=== PATIENT | male | born 1940 | race Caucasian/White ===

== ENCOUNTER 2017-03-11 04:15 | Observation (INO) | payer OTHER ==
[~2017-03-11] VITALS: Ht 172.7 cm; Wt 70.0 kg
[2017-03-11 04:15] VITALS: BP 154/72; PULSE 58; RESP 24; TEMP 97.7; O2SAT 98
[~2017-03-11 04:15] MED LIST: AMOX875T20 PO; CIPR750T10 PO; CLIN1CAP6 PO; CLOB-50 TOP; EZET10 PO; FLUN25I; GLYB1.2538 PO; LANS30 PO; LISI-357 PO; METO25 PO; NITR.4 SL; SM A81CH PO; TERA1CAP3 PO
[2017-03-11 04:19] VITALS: BP 159/74; PULSE 57; RESP 20; TEMP 97.7; O2SAT 100
[2017-03-11 04:53] LABS: AUTOMATED NEUTROPHIL # 5.4 TH/MM3 (1.8-7.7); BASOPHIL % 0.5 % (0.0-2.0); EOSINOPHIL # 0.3 TH/MM3 (0-0.4); EOSINOPHIL % 3.4 % (0.0-4.0); HEMATOCRIT 32.1 % (39.0-51.0); HEMO FLAGS DIFF FINAL; LYMPH % 16.7 % (9.0-44.0); LYMPHOCYTE # 1.3 TH/MM3 (1.0-4.8); MEAN CELL VOLUME 81.9 FL (80.0-100.0); MEAN CORPUSCULAR HEMOGLOBIN 28.4 PG (27.0-34.0); MEAN CORPUSCULAR HGB CONC 34.7 % (32.0-36.0); MONO % 8.7 % (0.0-8.0); NEUT % 70.7 % (16.0-70.0); PLATELET COUNT 189 TH/MM3 (150-450); RED BLOOD COUNT 3.92 MIL/MM3 (4.50-5.90); RED CELL DISTRIBUTION WIDTH 14.3 % (11.6-17.2); WHITE BLOOD COUNT 7.6 TH/MM3 (4.0-11.0)
--- NOTE | 2017-03-11 04:58 | RADRPT ---
EXAM DATE/TIME: 03/11/2017 04:47 [facility] COMPARISON: No previous studies available for comparison. INDICATIONS : Cough. MEDICAL HISTORY : None. SURGICAL HISTORY : CABG. ENCOUNTER: Initial ACUITY: 1 day PAIN SCORE: 0/10 LOCATION: Bilateral chest FINDINGS: The patient is status post sternotomy. The heart size is normal. The lungs are clear. CONCLUSION: No acute disease. Carlos Dotson MD on March 11, 2017 at 4:56 Board Certified Radiologist. This report was verified electronically.
[2017-03-11 05:00] VITALS: BP 164/74; PULSE 56; RESP 24; O2SAT 98
[2017-03-11 05:05] LABS: APTT (PATIENT) 24.5 SEC (24.3-30.1); PROTHROMBIN TIME - PATIENT 10.5 SEC (9.8-11.6)
[2017-03-11 05:11] LABS: ALCOHOL LESS THAN 3 MG/DL (0-5); ALT (GPT) 30 U/L (12-78); ANION GAP 8 MEQ/L (5-15); AST (GOT) 23 U/L (15-37); BICARBONATE 22.9 MEQ/L (21.0-32.0); BLOOD UREA NITROGEN 13 MG/DL (7-18); CHLORIDE 98 MEQ/L (98-107); GLOMERULAR FILTRATION RATE 72 ML/MIN (>89); MAGNESIUM 1.7 MG/DL (1.5-2.5); POTASSIUM 4.1 MEQ/L (3.5-5.1); SODIUM (NA) 129 MEQ/L (136-145)
[2017-03-11 05:14] LABS: ALKALINE PHOSPHATASE 61 U/L (45-117); TOTAL BILIRUBIN ADULT 0.6 MG/DL (0.2-1.0)
[2017-03-11 05:17] LABS: CREATINE KINASE 89 U/L (39-308)
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
[2017-03-11 05:47] LABS: BLOOD, URINE NEG (NEG); GLUCOSE,URINE NEG (NEG); KETONE, URINE NEG (NEG); NITRITE,URINE NEG (NEG); URINE COLOR LIGHT-YELLOW (YELLW/STRAW)
[2017-03-11 05:48] LABS: COMMENT (UR) CULT NOT INDICATED; CULTURE IF INDICATED CULT NOT INDICATED
[2017-03-11 06:00] VITALS: BP 147/82; PULSE 58; RESP 24; O2SAT 99
[2017-03-11] MEDS ORDERED: IOHEXOL 350 MG/ML 10 ML VIAL (for RAD DIAG) IVCONTRAST ONE (07:05)
--- NOTE | 2017-03-11 07:09 | RADRPT ---
EXAM DATE/TIME: 03/11/2017 06:46 [facility] COMPARISON: No previous studies available for comparison. INDICATIONS : Expressive aphasia. RADIATION DOSE: 56.35 CTDIvol (mGy) MEDICAL HISTORY : Cardiovascular disease. SURGICAL HISTORY : None. ENCOUNTER: Initial ACUITY: 1 day PAIN SCALE: 0/10 LOCATION: cranial TECHNIQUE: Multiple contiguous axial images were obtained of the head. Using automated exposure control and adj ustment of the mA and/or kV according to patient size, radiation dose was kept as low as reasonably a chievable to obtain optimal diagnostic quality images. DICOM format image data is available electro nically for review and comparison. FINDINGS: There is diffuse atrophy. No hemorrhage or mass. No signs of acute infarction. There is patchy hypode nsity in the bilateral centrum semiovale, periventricular white matter as well as the kelly most likel y on the basis of chronic microvascular ischemic disease. No fractures. CONCLUSION: No acute disease. Jarett Richmond MD on March 11, 2017 at 7:06 Board Certified Radiologist. This report was verified electronically.
--- NOTE | 2017-03-11 07:28 | RADRPT ---
EXAM DATE/TIME: 03/11/2017 06:48 [facility] COMPARISON: CT BRAIN W/O CONTRAST, March 11, 2017, 6:46. INDICATIONS : Expressive aphasia. IV CONTRAST: 75 cc Omnipaque 350 (iohexol) IV ; Cumulative dose for multiple exams. RADIATION DOSE: 14.69 CTDIvol (mGy) ; Combined studies MEDICAL HISTORY : Cardiovascular disease. SURGICAL HISTORY : None. ENCOUNTER: Initial ACUITY: 1 day PAIN SCALE: 0/10 LOCATION: Bilateral cranial TECHNIQUE: Volumetric scanning was performed using a multi-row detector CT scanner. The data was post processed with a variety of visualization algorithms including full volume maximum intensity projection, multi -planar sliding thin slab reformation, curved planar reformation, and surface rendering techniques. Using automated exposure control and adjustment of the mA and/or kV according to patient size, radiat ion dose was kept as low as reasonably achievable to obtain optimal diagnostic quality images. DICO M format image data is available electronically for review and comparison. FINDINGS: There is excellent visualization of the major intracranial arteries out to the second-order branch ve ssels. There is no evidence for aneurysm, vessel truncation or stenosis, and no evidence for vascula r malformation. Scattered areas of calcific plaquing are identified within the right distal vertebral artery, bilater al internal carotid arteries. CONCLUSION: Atherosclerosis without evidence for a high grade stenosis, occlusion, or aneurysm. Jarett Richmond MD on March 11, 2017 at 7:25 Board Certified Radiologist. This report was verified electronically.
--- NOTE | 2017-03-11 07:51 | RADRPT ---
EXAM DATE/TIME: 03/11/2017 06:48 [facility] COMPARISON: CTA BRAIN W 3D RECON, March 11, 2017, 6:48. INDICATIONS : Expressive aphasia. IV CONTRAST: 75 cc Omnipaque 350 (iohexol) IV ; Cumulative dose for multiple exams. RADIATION DOSE: 14.69 CTDIvol (mGy) ; Combined studies MEDICAL HISTORY : Cardiovascular disease. SURGICAL HISTORY : None. ENCOUNTER: Initial ACUITY: 1 day PAIN SCALE: 0/10 LOCATION: Bilateral neck Elevated flow velocities and ICA/CCA ratios have been found to correlate with increased degrees of vessel stenosis, calculated as percentage of diameter relative to a normal segment of distal ICA/CCA. TECHNIQUE: Volumetric scanning was performed using a multirow detector CT scanner. The data was post processed with a variety of visualization algorithms including full-volume maximum intensity projection, multip lanar sliding thin-slab reformation, curved-planar reformation, and surface-rendering techniques. Us ing automated exposure control and adjustment of the mA and/or kV according to patient size, radiatio n dose was kept as low as reasonably achievable to obtain optimal diagnostic quality images. DICOM f ormat image data is available electronically for review and comparison. FINDINGS: AORTIC ARCH: There is a three-vessel origin of the great vessels from the aorta. No evidence of ostial narrowing. RIGHT CAROTID: The common carotid artery is intact. The carotid bulb has a normal configuration without ulceration o r narrowing. Mild calcified plaque in the proximal internal carotid artery with resultant less than 1 0% stenosis. Cervical segment of the internal carotid artery is widely patent. Moderate atherosclerot ic calcifications of the supraclinoid segment with likely resultant mild to moderate stenosis. The ex ternal carotid artery is intact. LEFT CAROTID: The common carotid artery is intact. The carotid bulb has a normal configuration without ulceration with minimal calcified plaque. Mild calcified plaque in the proximal internal carotid artery with re sultant less than 10% stenosis. Cervical segment of the internal carotid artery is widely patent. Mod erate atherosclerotic calcifications are of the supraclinoid segment with likely resultant mild to mo derate stenosis. The external carotid artery is intact. VERTEBRALS: The vertebral arteries are slightly asymmetric with a dominant right vertebral artery. Distal vertebr al artery calcified plaque without significant flow-limiting stenosis. Miscellaneous: Visualized lung bases are clear. Heart appears unremarkable by CT. There is no significant cervical s oft tissue mass or adenopathy. CONCLUSION: 1. Moderate atherosclerotic calcifications of the supraclinoid internal carotid arteries with resulta nt tandem mild to moderate stenosis. Otherwise, no significant flow-limiting stenosis in the proximal or cervical segments of the internal carotid arteries. 2. Dominant right vertebral artery. No significant flow-limiting vertebral artery stenosis. Gigi Hunter MD on March 11, 2017 at 7:39 Board Certified Radiologist. This report was verified electronically.
--- NOTE | 2017-03-11 08:19 | PD ---
Physical Exam Narrative Received sign out from previous team to follow up CT scan and admit for TIA. 76yo M with PMH of CAD s/p CABG here with c/o difficulty speaking when he woke up this morning as well as having some right arm weakness. Said he was getting dress and having difficulty. Pt went to sleep at 11pm and was speaking normal with no right arm weakness. Pt evaluated at beside and said his speech is normal now and no more weakness. Denies any chest pain, sob, n/v, abdominal pain, focal weakness or numbness now. Labs reviewed, no leukocytosis. H/H low at 11.1/32.1. Mild hyponatremia at 129. Troponin negative. Ammonia normal. Utox negative. Alcohol negative. UA negative. CTA neck showed moderate atherosclerotic calcifications. No significant flow limiting vertebral artery stenosis. CXR negative. CT brain negative. CTA head negative. Pt given aspirin and to be admitted for TIA work up. Data Data Last Documented VS Vital Signs Date Time Temp Pulse Resp B/P (MAP) Pulse Ox O2 Delivery O2 Flow Rate FiO2 03/11/17 06:00 58 24 147/82 (103) 99 Room Air 03/11/17 04:19 97.7 Orders Orders Electrocardiogram (03/11/17 04:28) Complete Blood Count With Diff (03/11/17 04:28) Comprehensive Metabolic Panel (03/11/17 04:28) Creatine Kinase (Cpk) (03/11/17 04:28) Ckmb (Isoenzyme) Profile (03/11/17 04:28) Troponin I (03/11/17 04:28) B-Type Natriuretic Peptide (03/11/17 04:28) Prothrombin Time / Inr (Pt) (03/11/17 04:28) Act Partial Throm Time (Ptt) (03/11/17 04:28) Urinalysis - C+S If Indicated (03/11/17 04:28) Magnesium (Mg) (03/11/17 04:28) Ammonia (03/11/17 04:28) Chest, Single Ap (03/11/17 04:28) Ct Brain W/O Iv Contrast(Rout) (03/11/17 04:28) Iv Access Insert/Monitor (03/11/17 04:28) Ecg Monitoring (03/11/17 04:28) Oximetry (03/11/17 04:28) Drug Screen, Random Urine (03/11/17 04:28) Alcohol (Ethanol) (03/11/17 04:28) Cta Brain W Iv Contrast W 3d (03/11/17 04:28) Cta Neck W Iv Contrast W 3d (03/11/17 04:50) Iohexol 350 Inj (Omnipaque 350 Inj) (03/11/17 07:05) Labs Laboratory Tests Test 03/11/17 04:40 03/11/17 05:35 White Blood Count 7.6 TH/MM3 Red Blood Count 3.92 MIL/MM3 Hemoglobin 11.1 GM/DL Hematocrit 32.1 % Mean Corpuscular Volume 81.9 FL Mean Corpuscular Hemoglobin 28.4 PG Mean Corpuscular Hemoglobin Concent 34.7 % Red Cell Distribution Width 14.3 % Platelet Count 189 TH/MM3 Mean Platelet Volume 7.1 FL Neutrophils (%) (Auto) 70.7 % Lymphocytes (%) (Auto) 16.7 % Monocytes (%) (Auto) 8.7 % Eosinophils (%) (Auto) 3.4 % Basophils (%) (Auto) 0.5 % Neutrophils # (Auto) 5.4 TH/MM3 Lymphocytes # (Auto) 1.3 TH/MM3 Monocytes # (Auto) 0.7 TH/MM3 Eosinophils # (Auto) 0.3 TH/MM3 Basophils # (Auto) 0.0 TH/MM3 CBC Comment DIFF FINAL Differential Comment Prothrombin Time 10.5 SEC Prothromb Time International Ratio 1.0 RATIO Activated Partial Thromboplast Time 24.5 SEC Blood Urea Nitrogen 13 MG/DL Creatinine 1.00 MG/DL Random Glucose 95 MG/DL Total Protein 6.9 GM/DL Albumin 3.6 GM/DL Calcium Level 8.3 MG/DL Magnesium Level 1.7 MG/DL Alkaline Phosphatase 61 U/L Aspartate Amino Transf (AST/SGOT) 23 U/L Alanine Aminotransferase (ALT/SGPT) 30 U/L Total Bilirubin 0.6 MG/DL Sodium Level 129 MEQ/L Potassium Level 4.1 MEQ/L Chloride Level 98 MEQ/L Carbon Dioxide Level 22.9 MEQ/L Anion Gap 8 MEQ/L Estimat Glomerular Filtration Rate 72 ML/MIN Ammonia 24 MCMOL/L Total Creatine Kinase 89 U/L Troponin I LESS THAN 0.02 NG/ML B-Type Natriuretic Peptide 56 PG/ML Ethyl Alcohol Level LESS THAN 3 MG/DL Urine Color LIGHT-YELLOW Urine Turbidity CLEAR Urine pH 6.0 Urine Specific [place] 1.006 Urine Protein NEG mg/dL Urine Glucose (UA) NEG mg/dL Urine Ketones NEG mg/dL Urine Occult Blood NEG Urine Nitrite NEG Urine Bilirubin NEG Urine Urobilinogen LESS THAN 2.0 MG/DL Urine Leukocyte Esterase NEG Microscopic Urinalysis Comment CULT NOT INDICATED Urine Opiates Screen NEG Urine Barbiturates Screen NEG Urine Amphetamines Screen NEG Urine Benzodiazepines Screen NEG Urine Cocaine Screen NEG Urine Cannabinoids Screen NEG MDM Supervised Visit with EVELYNE: No Diagnosis Primary Impression: TIA (transient ischemic attack) Qualified Codes: G45.9 - Transient cerebral ischemic attack, unspecified Admitting Information Admitting Physician Requests: Observation Scripts Unable to Obtain Active Prescriptions or Reported Meds Rhianna Marvin DO Mar 11, 2017 08:18
[2017-03-11] MEDS ORDERED: ASPIRIN 325 MG TAB PO ONE (08:30)
[2017-03-11] MEDS ORDERED: SODIUM CHLORIDE 0.9% FLUSH 10 ML FLUSH IV FLUSH SCH (09:00)
[2017-03-11] MEDS ORDERED: SODIUM CHLORIDE 0.9% FLUSH 10 ML FLUSH IV FLUSH PRN (09:00)
--- NOTE | 2017-03-11 09:58 | HHI.HP ---
[facility] Admission Diagnosis TIA Diagnoses: Travel History International Travel<30 Days: No Contact w/Intl Traveler <30 Da: No History of Present Illness hx from patient, ER MD communication, daughter at the bedside, nursing staff woke up and had right arm pain, and right face tingling, and called ambulance himself and could not speak, was slurring was trying get himself dressed for coming to hospital and was not able to button his shirts midnight slept left foot problem chronic was getting rx at [place] - was chronic but oozing still taking antibiotics for it 14 days for one and 6 months antibiotics no diarrhea, but has been constipated no fever denies other symptoms Review of Systems Except as stated in HPI: all other systems reviewed are Neg Past Family Social History Past Medical History htn dm cad CABG 2011 [place], s/p 3 stents in 1993 dementia PAD TIA BPH left foot chronic diabetic ulcer/ osteo psoriasis Past Surgical History cabg 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- bovine c6-c7 titanium plate appendectomy tonsilectomy cataract right eye Allergies: Coded Allergies: Sulfa (Sulfonamide Antibiotics) (Unverified Allergy, Severe, 03/11/17) cholestyramine (Unverified Allergy, Severe, 03/11/17) lisinopril (Unverified Allergy, Severe, 03/11/17) metformin (Unverified Allergy, Severe, 03/11/17) niacin (Unverified Allergy, Severe, 03/11/17) omeprazole (Unverified Allergy, Severe, 03/11/17) simvastatin (Unverified Allergy, Severe, 03/11/17) Family History none that he knows of Social History used to smoke, now only once in awhile - about once a week, a few cigarettes about 2 beers a week no drugs lives on his own, still driving - even drove to [place] Physical Exam Vital Signs Vital Signs Date Time Temp Pulse Resp B/P (MAP) Pulse Ox O2 Delivery O2 Flow Rate FiO2 03/11/17 06:00 58 24 147/82 (103) 99 Room Air 12/19/17 05:00 56 24 164/74 (104) 98 Room Air 03/11/17 04:23 24 100 Room Air 03/11/17 04:19 97.7 57 20 159/74 (102) 100 03/11/17 04:15 97.7 58 24 154/72 (99) 98 Room Air Physical Exam GENERAL: This is a well-nourished, well-developed patient, in no apparent distress. SKIN: psoriatic lesions at bilateral knees HEAD: Atraumatic. Normocephalic. No temporal or scalp tenderness. EYES: No scleral icterus. No injection or drainage. ENT: Nose without bleeding, purulent drainage or septal hematoma. Airway patent. NECK: Trachea midline. No JVD Supple, nontender, no meningeal signs. CARDIOVASCULAR: Regular rate and rhythm without murmurs, gallops, or rubs. RESPIRATORY: Clear to auscultation. Breath sounds equal bilaterally. No wheezes , rales, or rhonchi. midline cabg scar GASTROINTESTINAL: Abdomen soft, non-tender, nondistended. No guarding. MUSCULOSKELETAL: Extremities without clubbing, cyanosis, or edema. No calf tenderness..left foot plantar surface with diabetic wound ulcer, no drainage, no erythema, but does have surround periwound swelling NEUROLOGICAL: Awake and alert. Cranial nerves II through XII intact. Motor and sensory grossly within normal limits. Normal speech. Laboratory Laboratory Tests Test 03/11/17 04:40 03/11/17 05:35 White Blood Count 7.6 Red Blood Count 3.92 Hemoglobin 11.1 Hematocrit 32.1 Mean Corpuscular Volume 81.9 Mean Corpuscular Hemoglobin 28.4 Mean Corpuscular Hemoglobin Concent 34.7 Red Cell Distribution Width 14.3 Platelet Count 189 Mean Platelet Volume 7.1 Neutrophils (%) (Auto) 70.7 Lymphocytes (%) (Auto) 16.7 Monocytes (%) (Auto) 8.7 Eosinophils (%) (Auto) 3.4 Basophils (%) (Auto) 0.5 Neutrophils # (Auto) 5.4 Lymphocytes # (Auto) 1.3 Monocytes # (Auto) 0.7 Eosinophils # (Auto) 0.3 Basophils # (Auto) 0.0 CBC Comment DIFF FINAL Differential Comment Prothrombin Time 10.5 Prothromb Time International Ratio 1.0 Activated Partial Thromboplast Time 24.5 Blood Urea Nitrogen 13 Creatinine 1.00 Random Glucose 95 Total Protein 6.9 Albumin 3.6 Calcium Level 8.3 Magnesium Level 1.7 Alkaline Phosphatase 61 Aspartate Amino Transf (AST/SGOT) 23 Alanine Aminotransferase (ALT/SGPT) 30 Total Bilirubin 0.6 Sodium Level 129 Potassium Level 4.1 Chloride Level 98 Carbon Dioxide Level 22.9 Anion Gap 8 Estimat Glomerular Filtration Rate 72 Ammonia 24 Total Creatine Kinase 89 Troponin I LESS THAN 0.02 B-Type Natriuretic Peptide 56 Ethyl Alcohol Level LESS THAN 3 Urine Color LIGHT-YELLOW Urine Turbidity CLEAR Urine pH 6.0 Urine Specific [place] 1.006 Urine Protein NEG Urine Glucose (UA) NEG Urine Ketones NEG Urine Occult Blood NEG Urine Nitrite NEG Urine Bilirubin NEG Urine Urobilinogen LESS THAN 2.0 Urine Leukocyte Esterase NEG Microscopic Urinalysis Comment CULT NOT INDICATED Urine Opiates Screen NEG Urine Barbiturates Screen NEG Urine Amphetamines Screen NEG Urine Benzodiazepines Screen NEG Urine Cocaine Screen NEG Urine Cannabinoids Screen NEG Result Diagram: 03/11/1743903/11/17439 Imaging Last 48 hours Impressions Neck CTA 03/11/17449 Signed Impressions: Service Date/Time: Saturday, March 11, 2017 06:48 - CONCLUSION: 1. Moderate atherosclerotic calcifications of the supraclinoid internal carotid arteries with resultant tandem mild to moderate stenosis. Otherwise, no significant flow-limiting stenosis in the proximal or cervical segments of the internal carotid arteries. 2. Dominant right vertebral artery. No significant flow-limiting vertebral artery stenosis. Gigi Hunter MD Head CTA 03/11/17427 Signed Impressions: Service Date/Time: Saturday, March 11, 2017 06:48 - CONCLUSION: Atherosclerosis without evidence for a high grade stenosis, occlusion, or aneurysm. Jarett Richmond MD Head CT 03/11/17427 Signed Impressions: Service Date/Time: Saturday, March 11, 2017 06:46 - CONCLUSION: No acute disease. Jarett Richmond MD Chest X-Ray 03/11/17427 Signed Impressions: Service Date/Time: Saturday, March 11, 2017 04:47 - CONCLUSION: No acute disease. Carlos Dotson MD Capmirelai VTE Risk Assessment Caprini VTE Risk Assessment: Mod/High Risk (score >= 2) Caprini Risk Assessment Model Point Value = 1 Point Value = 2 Point Value = 3 Point Value = 5 Age 41-60 Minor surgery BMI > 25 kg/m2 Swollen legs Varicose veins or History of unexplained or recurrent spontaneous Oral contraceptives or hormone replacement Sepsis (< 1 month) Serious lung disease, including pneumonia (< 1 month) Abnormal pulmonary function Acute myocardial infarction Congestive heart failure (< 1 month) History of inflammatory bowel disease Medical patient at bed rest Age 61-74 Arthroscopic surgery Major open surgery (> 45 min) Laparoscopic surgery (> 45 min) Malignancy Confined to bed (> 72 hours) Immobilizing plaster cast Central venous access Age >= 75 History of VTE Family history of VTE Factor V Leiden Prothrombin [id number] Lupus anticoagulant Anticardiolipin antibodies Elevated serum homocysteine Heparin-induced thrombocytopenia Other congenital or acquired thrombophilia Stroke (< 1 month) Elective arthroplasty Hip, pelvis, or leg fracture Acute spinal cord injury (< 1 month) Prophylaxis Regimen Total Risk Factor Score Risk Level Prophylaxis Regimen 0-1 Low Early ambulation 2 Moderate Order ONE of the following: *Sequential Compression Device (SCD) *Heparin 5000 units SQ BID 3-4 Higher Order ONE of the following medications: *Heparin 5000 units SQ TID *Enoxaparin/Lovenox 40 mg SQ daily (WT < 150 kg, CrCl > 30 mL/min) *Enoxaparin/Lovenox 30 mg SQ daily (WT < 150 kg, CrCl > 10-29 mL/min) *Enoxaparin/Lovenox 30 mg SQ BID (WT < 150 kg, CrCl > 30 mL/min) AND/OR *Sequential Compression Device (SCD) 5 or more Highest Order ONE of the following medications: *Heparin 5000 units SQ TID (Preferred with Epidurals) *Enoxaparin/Lovenox 40 mg SQ daily (WT < 150 kg, CrCl > 30 mL/min) *Enoxaparin/Lovenox 30 mg SQ daily (WT < 150 kg, CrCl > 10-29 mL/min) *Enoxaparin/Lovenox 30 mg SQ BID (WT < 150 kg, CrCl > 30 mL/min) AND *Sequential Compression Device (SCD) Assessment and Plan Assessment and Plan Impression: TIA Urinary frequency chronic with history of BPH htn dm cad CABG 2011 [place], s/p 3 stents in 1993 dementia PAD TIA BPH left foot chronic diabetic ulcer/ osteo psoriasis Plan: Patient really would like to be discharged home soon as me and the neurologist entered his room. His daughter was at the bedside. Patient is explained at length in front of his daughter regarding stroke management and the need to follow-up. He is explained the time sensitive manner of CVA / TIA management and that he should call 911 if any new symptoms developed. He is explained that the reason for us to admit him to the hospital under observation is to monitor for such symptoms and timing so that in case he needs medication such as TPA/clot busters/interventional radiology procedures, he would be able to do it. Patient's daughter is also explained that patient should follow up with the primary care. He has an appointment at [place] for tomorrow for his left foot diabetic chronic wound which is possibly with underlying osteomyelitis as well. He is contemplating whether to go to [place] today. His daughter is also explained that patient would likely need stronger anticoagulation then an aspirin that he is taking at home. This is to be discussed with his future [place] team or PCP. As per history, this is his second time of having a TIA. Imaging studies done at our hospital includes CT of the neck/CTA of the brain/ brain CT. All are negative for any significant abnormalities. Patient will sign out AMA. Nursing staff informed. Discussed Condition With patient, daughter at bedside, nursing staff Kamryn Gray MD Mar 11, 2017 09:58
--- NOTE | 2017-03-11 11:51 | MB ---
cc: JANNY VERONICA M.D. DATE OF CONSULTATION 03/11/2017 DATE OF 1940 AGE [age] years old. REASON FOR CONSULTATION Possible TIA. HISTORY OF PRESENT ILLNESS This is a 76-year-old man who went to bed normal, around midnight, woke up in the morning with some right arm pain, tingling of the face, dysarthria, unable to speak when he called the ambulance. He had trouble dressing himself, not able to button. He seems to be back to baseline. Since he woke up with the symptoms, there was no stroke alert called nor any t-PA given. He did have a CT, CTA, etc. Currently he denies any numbness, tingling, trouble speaking. PAST MEDICAL HISTORY 1. 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 2. He has a history diabetes. 3. Heart disease. 4. Bypass surgery. 5. Neuropathy. 6. Psoriasis. ALLERGIES SULFA. CHOLESTYRAMINE. LISINOPRIL. METFORMIN. NIACIN. OMEPRAZOLE. SIMVASTATIN. HOME MEDICINES please refer to his MAR. SOCIAL HISTORY Apparently lives alone. There is no tobacco or alcohol or drugs listed. FAMILY HISTORY Noncontributory at this point. PHYSICAL EXAMINATION VITALS: Temperature 97.7, pulse 58, respiratory rate 24, blood pressure 147/82. NECK: His neck is supple. I do not appreciate any bruises. HEART: Regular. GENERAL: He is awake, alert, oriented and fluent. NEUROLOGICAL EXAMINATION: Pupils reactive. Visual daniels full. Face symmetrical. Tongue is midline. Motor-lang I do not appreciate any drift. He has a minor tremor of his outstretched hands and minimal on [id number] on the left compared to the right but there is no drift. Strength is symmetrical. There is no leg lag. DTRs are 1+. Sensory normal. Toes are neutral. The right and left one is neutral as well but there is a large bandage over it. Gait is not tested. LABORATORY DATA Labs are reviewed. His white count is 7.6, hemoglobin 11.1, platelets 189,000. Coag panel was unremarkable. Chem studies show he is hyponatremia. Sodium is 129, GFR 72, calcium 8.3. BNP 56. Toxicology was negative. UA was negative. IMAGING STUDIES CT head did not show any acute pathology. No stroke or bleed. CTA of the [place] shows atherosclerosis without any evidence of any high-grade stenosis or occlusion or aneurysm. His CTA of the carotids shows moderate atherosclerotic calcifications of the supraclinoid, internal carotid arteries with resultant mild to moderate stenosis. Otherwise no significant flow-limiting stenosis in the proximal or cervical segments of the internal carotids. He has a dominant right vertebral artery. No significant flow-limiting stenosis. His chest x-ray has no acute pathology. IMPRESSION Likely TIA in this patient with medical history of heart disease, diabetes. RECOMMENDATIONS 1. Recommend at this point in time, since he has been on aspirin in the past, to change him over to Plavix 75 mg daily. 2. He will have an echocardiogram. We will get an MRI. He needs a lipid panel. 3. He needs to be on subcu Lovenox for DVT prophylaxis as well as SCDs. 4. PT, OT evaluation. He has been already been assessed. He has not been assessed yet by speech but his speech seems normal. I do not think he needs to have speech therapy eval. 5. It seems that he is allergic to certain statins. If his lipids are elevated, other options need to be considered. 6. If stable and workup is negative, I would recommend discharging him, have [facility]. 7. He would probably benefit from a prolonged Holter monitor as well. Thank you. MD SIMON [place]/SUSAN /10:13 AM /11:30 AM
[2017-03-11] MEDS ORDERED: LACTOBACILLUS ACIDOPHILUS TAB PO SCH (13:00)
--- NOTE | 2017-03-11 16:37 | EKG ---
Date Performed: 03/11/2017 Time Performed: 04:19:28 PTAGE: 76 years EKG: SINUS BRADYCARDIA (artifact noted). ST DEVIATION AND MODERATE T-WAVE ABNORMALITY, CONSIDER LATERAL ISCHEMIA Since previous tracing, no significant change noted ABNORMAL ECG PREVIOUS TRACING : 10/03/92 13.52.47 DOCTOR: Adam Ji Interpretating Date/Time 03/11/2017 16:37:01
[2017-03-11] MEDS ORDERED: DOCUSATE SODIUM 50 MG/SENNA 8.6 MG TAB PO SCH (21:00)
[2017-03-11 21:50] LABS: HEMOGLOBIN A1a 1.2 %; HEMOGLOBIN A1b 1.9 %; HEMOGLOBIN LA1C 1.9 %
[2017-03-11 21:51] LABS: HEMOGLOBIN Ao 83.2 %
[2017-03-12] MEDS ORDERED: CLOPIDOGREL 75 MG TAB PO SCH (09:00)
== END 2017-03-11 11:29 | disposition left against medical advice (07) ==
LOC: NEPC 04:15 → NEDA 08:36
PROVIDERS: ADMIT Internal Medicine; ATTEND Internal Medicine
DX: G45.9 Transient cerebral ischemic attack, unspecified (principal); N40.1 Benign prostatic hyperplasia with lower urinary tract symptoms; R35.0 Frequency of micturition; R05 Cough; R00.1 Bradycardia, unspecified; R94.31 Abnormal electrocardiogram [ECG] [EKG]; E87.1 Hypo-osmolality and hyponatremia; K59.00 Constipation, unspecified; I25.10 Atherosclerotic heart disease of native coronary artery without angina pectoris; I10 Essential (primary) hypertension; E11.51 Type 2 diabetes mellitus with diabetic peripheral angiopathy without gangrene; I73.9 Peripheral vascular disease, unspecified; E11.621 Type 2 diabetes mellitus with foot ulcer; L97.529 Non-pressure chronic ulcer of other part of left foot with unspecified severity; E11.40 Type 2 diabetes mellitus with diabetic neuropathy, unspecified; I25.2 Old myocardial infarction; K21.9 Gastro-esophageal reflux disease without esophagitis; F03.90 Unspecified dementia, unspecified severity, without behavioral disturbance, psychotic disturbance, mood disturbance, and anxiety; L40.9 Psoriasis, unspecified; F17.210 Nicotine dependence, cigarettes, uncomplicated; Z95.1 Presence of aortocoronary bypass graft; Z95.5 Presence of coronary angioplasty implant and graft; Z95.3 Presence of xenogenic heart valve; Z86.73 Personal history of transient ischemic attack (TIA), and cerebral infarction without residual deficits; Z79.899 Other long term (current) drug therapy; Z79.84 Long term (current) use of oral hypoglycemic drugs; Z79.82 Long term (current) use of aspirin
CPT/HCPCS: 70450; 70496; 70498; 71010; 80053; 80307; 81001; 82140; 82550; 83036; 83735; 83880; 84484; 85025; 85610; 85730; 93005; 99285; G0378; Q9967

== ENCOUNTER 2017-03-20 16:49 | Inpatient (IN) | payer OTHER, MEDICARE ==
[~2017-03-20] VITALS: Ht 177.8 cm; Wt 86.1 kg
[2017-03-20 17:04] VITALS: BP 204/88; PULSE 58; RESP 18; TEMP 97.7; TEMP 98; O2SAT 100
[2017-03-20 17:12] VITALS: BP 177/78; PULSE 58
[2017-03-20] MEDS ORDERED: LANS15CA PO (17:30)
[2017-03-20] MEDS ORDERED: SODIUM CHLORIDE 0.9% FLUSH 10 ML FLUSH IVF PRN (17:30)
[2017-03-20] MEDS ORDERED: LIPI80TA PO (17:30)
[2017-03-20] MEDS ORDERED: EZET10 PO (17:30)
[2017-03-20] MEDS ORDERED: DOXY1CAP91 PO (17:32)
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
[2017-03-20 17:58] LABS: HEMATOCRIT 36.9 % (39.0-51.0); HEMOGLOBIN 12.4 GM/DL (13.0-17.0); MEAN CELL VOLUME 84.5 FL (80.0-100.0); MEAN CORPUSCULAR HEMOGLOBIN 28.5 PG (27.0-34.0); MEAN CORPUSCULAR HGB CONC 33.7 % (32.0-36.0); MEAN PLATELET VOLUME 8.2 FL (7.0-11.0); PLATELET COUNT 169 TH/MM3 (150-450); RED BLOOD COUNT 4.37 MIL/MM3 (4.50-5.90); RED CELL DISTRIBUTION WIDTH 14.7 % (11.6-17.2); WHITE BLOOD COUNT 7.8 TH/MM3 (4.0-11.0)
[2017-03-20 17:59] VITALS: BP 179/78; PULSE 57; RESP 19; O2SAT 98
[2017-03-20 18:15] LABS: ALBUMIN 3.5 GM/DL (3.4-5.0); AST (GOT) 27 U/L (15-37); BICARBONATE 26.3 MEQ/L (21.0-32.0); BLOOD UREA NITROGEN 19 MG/DL (7-18); CALCIUM 8.2 MG/DL (8.5-10.1); CHLORIDE 105 MEQ/L (98-107); CREATININE 1.17 MG/DL (0.60-1.30); GLOMERULAR FILTRATION RATE 60 ML/MIN (>89); GLUCOSE,RANDOM 136 MG/DL (74-106); SODIUM (NA) 137 MEQ/L (136-145)
[2017-03-20 18:16] LABS: ALT (GPT) 32 U/L (12-78)
[2017-03-20 18:20] LABS: ALKALINE PHOSPHATASE 67 U/L (45-117); TOTAL BILIRUBIN ADULT 0.3 MG/DL (0.2-1.0); TOTAL PROTEIN 7.2 GM/DL (6.4-8.2); TROPONIN I LESS THAN 0.02 NG/ML (0.02-0.05)
[2017-03-20 18:22] LABS: BILIRUBIN, URINE NEG (NEG); BLOOD, URINE NEG (NEG); GLUCOSE,URINE TRACE mg/dL (NEG); KETONE, URINE NEG (NEG); NITRITE,URINE NEG (NEG); URINE COLOR LIGHT-YELLOW (YELLW/STRAW); URINE LEUKOCYTE ESTERASE NEG (NEG)
--- NOTE | 2017-03-20 18:36 | RADRPT ---
EXAM DATE/TIME: 03/20/2017 18:14 [facility] COMPARISON: CT BRAIN W/O CONTRAST, March 11, 2017, 6:46. INDICATIONS : Right hand numbness and tinging. RADIATION DOSE: 56.35 CTDIvol (mGy) MEDICAL HISTORY : Hypertension. Diabetes mellitus type 2. Cardiovascular disease SURGICAL HISTORY : None. ENCOUNTER: Initial ACUITY: 1 day PAIN SCALE: 0/10 LOCATION: cranial TECHNIQUE: Multiple contiguous axial images were obtained of the head. Using automated exposure control and adj ustment of the mA and/or kV according to patient size, radiation dose was kept as low as reasonably a chievable to obtain optimal diagnostic quality images. DICOM format image data is available electro nically for review and comparison. FINDINGS: CEREBRUM: The ventricles are normal for age. No evidence of midline shift, mass lesion, hemorrhage or acute in farction. No extra-axial fluid collections are seen. POSTERIOR FOSSA: The cerebellum and brainstem are intact. The 4th ventricle is midline. The cerebellopontine angle i s unremarkable. EXTRACRANIAL: The visualized portion of the orbits is intact. SKULL: The calvaria is intact. No evidence of skull fracture. CONCLUSION: No acute intracranial findings Carlos Reina MD on March 20, 2017 at 18:32 Board Certified Radiologist. This report was verified electronically.
[2017-03-20] MEDS ORDERED: ASPIRIN 81 MG CHEW TAB CHEW ONE (18:45)
[2017-03-20 18:50] LABS: BANDS 2 % (0-6); BASOPHILS 2 % (0-2); LYMPHOCYTES 13 % (9-44); MONOCYTES 8 % (0-8); NEUTROPHIL # MANUAL DIFF 5.7 TH/MM3 (1.8-7.7); POLYS (SEG NEUTROPHILS) 71 % (16-70)
--- NOTE | 2017-03-20 18:55 | PD ---
Physical Exam Narrative GENERAL: Well-nourished, well-developed patient. SKIN: Warm and dry. HEAD: Normocephalic and atraumatic. EYES: No injection or drainage. ENT: No nasal drainage noted. NECK: Supple, trachea midline. CARDIOVASCULAR: Regular rate and rhythm RESPIRATORY: no increased effort. No accessory muscle use. NEUROLOGICAL: Awake and alert. Talking on phone with clear speech, moves all extremities Data Data Last Documented VS Vital Signs Date Time Temp Pulse Resp B/P (MAP) Pulse Ox O2 Delivery O2 Flow Rate FiO2 03/20/17 17:59 57 19 179/78 (111) 98 Room Air 03/20/17 17:04 97.7 Orders Orders Electrocardiogram (03/20/17 17:23) Prothrombin Time / Inr (Pt) (03/20/17 17:23) Act Partial Throm Time (Ptt) (03/20/17 17:23) Complete Blood Count With Diff (03/20/17 17:23) Comprehensive Metabolic Panel (03/20/17 17:23) Creatine Kinase (Cpk) (03/20/17 17:23) Troponin I (03/20/17 17:23) Urinalysis - C+S If Indicated (03/20/17 17:23) Ct Brain W/O Iv Contrast(Rout) (03/20/17 17:23) Ecg Monitoring (03/20/17 17:23) Iv Access Insert/Monitor (03/20/17 17:23) Oximetry (03/20/17 17:23) Sodium Chloride 0.9% Flush (Ns Flush) (03/20/17 17:30) Aspirin Chew (Aspirin Chew) (03/20/17 18:45) Labs Laboratory Tests Test 03/20/17 17:25 03/20/17 17:30 Urine Color LIGHT-YELLOW Urine Turbidity CLEAR Urine pH 6.0 Urine Specific [place] 1.009 Urine Protein NEG mg/dL Urine Glucose (UA) TRACE mg/dL Urine Ketones NEG mg/dL Urine Occult Blood NEG Urine Nitrite NEG Urine Bilirubin NEG Urine Urobilinogen LESS THAN 2.0 MG/DL Urine Leukocyte Esterase NEG Urine RBC LESS THAN 1 /hpf Urine WBC LESS THAN 1 /hpf Microscopic Urinalysis Comment CATH-CULT NOT IND White Blood Count 7.8 TH/MM3 Red Blood Count 4.37 MIL/MM3 Hemoglobin 12.4 GM/DL Hematocrit 36.9 % Mean Corpuscular Volume 84.5 FL Mean Corpuscular Hemoglobin 28.5 PG Mean Corpuscular Hemoglobin Concent 33.7 % Red Cell Distribution Width 14.7 % Platelet Count 169 TH/MM3 Mean Platelet Volume 8.2 FL CBC Comment AUTO DIFF Differential Total Cells Counted 100 Neutrophils % (Manual) 71 % Band Neutrophils % 2 % Lymphocytes % 13 % Monocytes % 8 % Eosinophils % 4 % Basophils % 2 % Neutrophils # (Manual) 5.7 TH/MM3 Differential Comment FINAL DIFF MANUAL Platelet Estimate NORMAL Platelet Morphology Comment NORMAL Prothrombin Time 10.0 SEC Prothromb Time International Ratio 1.0 RATIO Activated Partial Thromboplast Time 24.0 SEC Blood Urea Nitrogen 19 MG/DL Creatinine 1.17 MG/DL Random Glucose 136 MG/DL Total Protein 7.2 GM/DL Albumin 3.5 GM/DL Calcium Level 8.2 MG/DL Alkaline Phosphatase 67 U/L Aspartate Amino Transf (AST/SGOT) 27 U/L Alanine Aminotransferase (ALT/SGPT) 32 U/L Total Bilirubin 0.3 MG/DL Sodium Level 137 MEQ/L Potassium Level 4.2 MEQ/L Chloride Level 105 MEQ/L Carbon Dioxide Level 26.3 MEQ/L Anion Gap 6 MEQ/L Estimat Glomerular Filtration Rate 60 ML/MIN Total Creatine Kinase 60 U/L Troponin I LESS THAN 0.02 NG/ML MDM Supervised Visit with EVELYNE: Yes Interpretation(s) CBC & BMP Diagram 03/20/17 17:30 Total Protein 7.2, Albumin 3.5, Calcium Level 8.2 L, Alkaline Phosphatase 67, Aspartate Amino Transf (AST/SGOT) 27, Alanine Aminotransferase (ALT/SGPT) 32, Total Bilirubin 0.3 Last [address] 03/20/17 1723 Signed Impressions: Service Date/Time: February 18:14 - CONCLUSION: No acute intracranial findings Carlos Reina MD Narrative Course I, Dr. hadley, have reviewed the advance practice practitioner's documentation and am in agreement, met with the patient face to face, made the diagnosis, and the medical decision making was done by me. *My assessment and Findings: 76 y/o male presents with numbness with recent left against advice for TIA workup. Patient agrees to admit for completion of testing Diagnosis Primary Impression: Numbness Mary Hadley MD Mar 20, 2017 18:55
--- NOTE | 2017-03-20 19:53 | HHI.HP ---
[facility] Admission Diagnosis TIA Diagnoses: (1) TIA (transient ischemic attack) Diagnosis: Principal (2) HTN (hypertension) Diagnosis: Principal (3) Bradycardia Diagnosis: Principal (4) Dehydration Diagnosis: Principal (5) DM (diabetes mellitus) Diagnosis: Principal Travel History International Travel<30 Days: No Contact w/Intl Traveler <30 Da: No Traveled to Known Affected Are: No History of Present Illness This is a 76-year-old male with PMH of HTN, CAD, DM, Hyperlipidemia and Peripheral Neuropathy who presented to the ER with complaints of RUE numbness and tingling in addition to dysarthria. States symptoms began acutely this afternoon, lasted approx 15-20 min, then resolved spontaneously. Currently feeling back to baseline. Similar symptoms approx 1 wk ago for which he was admitted on 03/11/17. CT Head and CTA Head w/ no acute findings, CTA Neck w/ moderate atherosclerotic calcifications of internal carotid arteries w/ mild to moderate stenosis. S/p eval by Dr. Mohamud w/ recommendation for Plavix, Echo and further imaging, however pt LEFT AMA. Now w/ recurrent symptoms. On arrival, BP 204/88, HR 58, O2 sat are percent on RA, Afebrile. CBC essentially unremarkable. GFR 60, producing a 72 on 03/11/17. Troponin negative. UA negative. CT Head with no acute findings. Review of Systems Except as stated in HPI: all other systems reviewed are Neg ROS: 14 point review of systems otherwise negative. Past Family Social History Past Medical History PMH: HTN, CAD, DM, Hyperlipidemia and Peripheral Neuropathy Past Surgical History PAST SURGICAL HISTORY: CABG, Aortic Valve Replacement, Cardiac Stent Allergies: Coded Allergies: Sulfa (Sulfonamide Antibiotics) (Unverified Allergy, Severe, 03/11/17) cholestyramine (Unverified Allergy, Severe, 03/11/17) lisinopril (Unverified Allergy, Severe, 03/11/17) metformin (Unverified Allergy, Severe, 03/11/17) niacin (Unverified Allergy, Severe, 03/11/17) omeprazole (Unverified Allergy, Severe, 03/11/17) simvastatin (Unverified Allergy, Severe, 03/11/17) Family History PAST FAMILY HISTORY: Reviewed, positive for DM and CAD Social History PAST SOCIAL HISTORY: Negative for alcohol, tobacco or drugs. Physical Exam Vital Signs Vital Signs Date Time Temp Pulse Resp B/P (MAP) Pulse Ox O2 Delivery O2 Flow Rate FiO2 03/20/17 17:59 57 19 179/78 (111) 98 Room Air 03/20/17 17:12 58 177/78 (111) 03/20/17 17:04 97.7 58 18 204/88 (126) 100 03/20/17 17:04 204/88 (126) 03/20/17 17:04 99 Room Air Physical Exam PE: GENERAL: Elderly white male in no acute distress. HEENT: PERRLA, EOMI. No scleral icterus or conjunctival pallor. No lid lag or facial droop. CARDIOVASCULAR: Regular rate and rhythm. No obvious murmurs to auscultation. No chest tenderness to palpation. RESPIRATORY: No obvious rhonchi or wheezing. Clear to auscultation. Breath sounds equal bilaterally. GASTROINTESTINAL: Abdomen soft, non-tender, nondistended. BS normal. MUSCULOSKELETAL: Extremities without clubbing, cyanosis, or edema. No obvious deformities. NEUROLOGICAL: Awake, alert and oriented x4. No focal neurologic deficits. Moving both upper and lower extremities spontaneously. Laboratory Laboratory Tests Test 03/20/17 17:25 03/20/17 17:30 Urine Color LIGHT-YELLOW Urine Turbidity CLEAR Urine pH 6.0 Urine Specific [place] 1.009 Urine Protein NEG Urine Glucose (UA) TRACE Urine Ketones NEG Urine Occult Blood NEG Urine Nitrite NEG Urine Bilirubin NEG Urine Urobilinogen LESS THAN 2.0 Urine Leukocyte Esterase NEG Urine RBC LESS THAN 1 Urine WBC LESS THAN 1 Microscopic Urinalysis Comment CATH-CULT NOT IND White Blood Count 7.8 Red Blood Count 4.37 Hemoglobin 12.4 Hematocrit 36.9 Mean Corpuscular Volume 84.5 Mean Corpuscular Hemoglobin 28.5 Mean Corpuscular Hemoglobin Concent 33.7 Red Cell Distribution Width 14.7 Platelet Count 169 Mean Platelet Volume 8.2 CBC Comment AUTO DIFF Differential Total Cells Counted 100 Neutrophils % (Manual) 71 Band Neutrophils % 2 Lymphocytes % 13 Monocytes % 8 Eosinophils % 4 Basophils % 2 Neutrophils # (Manual) 5.7 Differential Comment FINAL DIFF MANUAL Platelet Estimate NORMAL Platelet Morphology Comment NORMAL Prothrombin Time 10.0 Prothromb Time International Ratio 1.0 Activated Partial Thromboplast Time 24.0 Blood Urea Nitrogen 19 Creatinine 1.17 Random Glucose 136 Total Protein 7.2 Albumin 3.5 Calcium Level 8.2 Alkaline Phosphatase 67 Aspartate Amino Transf (AST/SGOT) 27 Alanine Aminotransferase (ALT/SGPT) 32 Total Bilirubin 0.3 Sodium Level 137 Potassium Level 4.2 Chloride Level 105 Carbon Dioxide Level 26.3 Anion Gap 6 Estimat Glomerular Filtration Rate 60 Total Creatine Kinase 60 Troponin I LESS THAN 0.02 Result Diagram: 03/20/17172903/20/171729 Caprini VTE Risk Assessment Caprini VTE Risk Assessment: No/Low Risk (score <= 1) Caprini Risk Assessment Model Point Value = 1 Point Value = 2 Point Value = 3 Point Value = 5 Age 41-60 Minor surgery BMI > 25 kg/m2 Swollen legs Varicose veins or History of unexplained or recurrent spontaneous Oral contraceptives or hormone replacement Sepsis (< 1 month) Serious lung disease, including pneumonia (< 1 month) Abnormal pulmonary function Acute myocardial infarction Congestive heart failure (< 1 month) History of inflammatory bowel disease Medical patient at bed rest Age 61-74 Arthroscopic surgery Major open surgery (> 45 min) Laparoscopic surgery (> 45 min) Malignancy Confined to bed (> 72 hours) Immobilizing plaster cast Central venous access Age >= 75 History of VTE Family history of VTE Factor V Leiden Prothrombin [id number] Lupus anticoagulant Anticardiolipin antibodies Elevated serum homocysteine Heparin-induced thrombocytopenia Other congenital or acquired thrombophilia Stroke (< 1 month) Elective arthroplasty Hip, pelvis, or leg fracture Acute spinal cord injury (< 1 month) Prophylaxis Regimen Total Risk Factor Score Risk Level Prophylaxis Regimen 0-1 Low Early ambulation 2 Moderate Order ONE of the following: *Sequential Compression Device (SCD) *Heparin 5000 units SQ BID 3-4 Higher Order ONE of the following medications: *Heparin 5000 units SQ TID *Enoxaparin/Lovenox 40 mg SQ daily (WT < 150 kg, CrCl > 30 mL/min) *Enoxaparin/Lovenox 30 mg SQ daily (WT < 150 kg, CrCl > 10-29 mL/min) *Enoxaparin/Lovenox 30 mg SQ BID (WT < 150 kg, CrCl > 30 mL/min) AND/OR *Sequential Compression Device (SCD) 5 or more Highest Order ONE of the following medications: *Heparin 5000 units SQ TID (Preferred with Epidurals) *Enoxaparin/Lovenox 40 mg SQ daily (WT < 150 kg, CrCl > 30 mL/min) *Enoxaparin/Lovenox 30 mg SQ daily (WT < 150 kg, CrCl > 10-29 mL/min) *Enoxaparin/Lovenox 30 mg SQ BID (WT < 150 kg, CrCl > 30 mL/min) AND *Sequential Compression Device (SCD) Assessment and Plan Problem List: (1) TIA (transient ischemic attack) ICD Code: G45.9 - Transient cerebral ischemic attack, unspecified Status: Acute (2) Dehydration ICD Code: E86.0 - Dehydration (3) Bradycardia ICD Code: R00.1 - Bradycardia, unspecified (4) HTN (hypertension) ICD Code: I10 - Essential (primary) hypertension (5) DM (diabetes mellitus) ICD Code: E11.9 - Type 2 diabetes mellitus without complications Assessment and Plan A/P: 1. TIA: Recurrent. Recent admit 03/11/17 for same, CT Head/CTA Head w/ no acute findings, CTA Neck w/ moderate calcifications of internal carotid arteries w/ mild to moderate stenosis, images reviewed by me. CT Head today w/ no acute findings, images reviewed. Continue w/ work-up for TIA, check Echo to eval for thromboembolic event, check MRI/MRA. Start Plavix per Neuro recommendation from last visit, hold Statin in light of reported ALLERGY. Check Lipid Profile, TSH, Hgb A1c. Neuro checks. NPO until passes swallow. Consult Neurology for further recommendations. PT/OT for eval/tx. 2. HTN: Uncontrolled. BP 204/88, HR 58. Allow for permissive HTN at the moment in light of TIA. Monitor BP. Antihypertensives for BP >220 systolic. 3. Bradycardia: HR 50's, asymptomatic at this time. Telemetry. Check Echo as above. 4. DM: Sliding scale w/ Accu-Cheks. Check Hgb A1c. 5. DVT Prophylaxis: Lovenox 6. Social work for d/c planning as needed. 7. Previous records/imaging/labs reviewed extensively from last visit, case discussed w/ ER physician at length. Physician Certification 2 Midnight Certification Type: Admission for Inpatient Services Order for Inpatient Services The services are ordered in accordance with Medicare regulations or non- Medicare payer requirements, as applicable. In the case of services not specified as inpatient-only, they are appropriately provided as inpatient services in accordance with the 2-midnight benchmark. Estimated LOS (days): 2 days is the estimated time the patient will need to remain in the hospital, assuming treatment plan goals are met and no additional complications. Post-Hospital Plan: Not yet determined Problem Qualifiers (1) TIA (transient ischemic attack): Qualified Codes: G45.9 - Transient cerebral ischemic attack, unspecified Alayna Lin MD Mar 20, 2017 19:53
[2017-03-20] MEDS ORDERED: GLUCAGON 1 MG/ML VIAL OTHER PRN (20:00)
[2017-03-20] MEDS ORDERED: LACTULOSE SYRUP 20 GM/30 ML CUP PO PRN (20:00)
[2017-03-20] MEDS ORDERED: ACETAMINOPHEN/HYDROcodone 325 MG/5 MG TAB PO PRN (20:00)
[2017-03-20] MEDS ORDERED: MAGNESIUM HYDROXIDE SUSP 30 ML CUP PO PRN (20:00)
[2017-03-20] MEDS ORDERED: ONDANSETRON HCL 4 MG/2 ML VIAL IVP PRN (20:00)
[2017-03-20] MEDS ORDERED: SENNOSIDES 8.6 MG TAB PO PRN (20:00)
[2017-03-20] MEDS ORDERED: BISACODYL 10 MG SUPP RECTAL PRN (20:00)
[2017-03-20] MEDS ORDERED: SODIUM CHLORIDE 0.9% FLUSH 10 ML FLUSH IV FLUSH PRN (20:00)
[2017-03-20] MEDS ORDERED: DEXTROSE 50% IN WATER 50 ML VIAL(D50) IV PUSH PRN (20:00)
[2017-03-20] MEDS ORDERED: MORPHINE SULFATE 2 MG/ML INJ IV PUSH PRN (20:00)
[2017-03-20] MEDS ORDERED: ACETAMINOPHEN 325 MG TAB PO PRN (20:00)
[2017-03-20] MEDS ORDERED: ENOXAPARIN SODIUM 40 MG/0.4 ML SYRINGE SQ SCH (21:00)
[2017-03-20 21:22] VITALS: BP 187/77; PULSE 55; RESP 17; TEMP 97.5; O2SAT 97
[2017-03-20] MEDS: INSULIN ASPART SUPPLEMENTAL SCALE SQ SCH (22:08)
[2017-03-20] MEDS: SODIUM CHLOR 0.9% 1000 ML INJ 1,000 ML IV SCH (22:30)
[2017-03-20] MEDS: DOCUSATE SODIUM 50 MG/SENNA 8.6 MG TAB PO SCH (22:31)
[2017-03-20] MEDS: SODIUM CHLORIDE 0.9% FLUSH 10 ML FLUSH IV FLUSH SCH (22:31)
--- NOTE | 2017-03-20 22:51 | RADRPT ---
EXAM DATE/TIME: 03/20/2017 20:35 [facility] COMPARISON: No previous studies available for comparison. INDICATIONS : Stroke. MEDICAL HISTORY : Hypertension. Cardiovascular disease Diabetes. SURGICAL HISTORY : Fusion, cervical. CABG Aortic valve replacement. ENCOUNTER: Subsequent ACUITY: 1 day PAIN SCORE: 0/10 LOCATION: cranial Please note a normal MRA of the brain does not entirely exclude the possibility of a small aneurysm, nor the possibility of distal intracranial vessel disease. TECHNIQUE: 3D time of flight MRA was performed. Source images, multiplanar STS MIP, and 3D volume MIP reconstru ctions were reviewed. FINDINGS: There is excellent visualization of the major intracranial arteries out to the second-order branch ve ssels. There is no evidence for aneurysm, vessel truncation or stenosis, and no evidence for vascula r malformation. There is mild relative hypoplasia of the right anterior cerebral artery A1 segment. CONCLUSION: No acute [place] vascular findings. Carlos Reina MD on March 20, 2017 at 22:49 Board Certified Radiologist. This report was verified electronically.
--- NOTE | 2017-03-20 23:00 | RADRPT ---
EXAM DATE/TIME: 03/20/2017 20:35 [facility] COMPARISON: No previous studies available for comparison. INDICATIONS : CVA. MEDICAL HISTORY : Hypertension. Cardiovascular disease Diabetes. SURGICAL HISTORY : Fusion, cervical. CABG Aortic valve replacement. ENCOUNTER: Subsequent ACUITY: 1 day PAIN SCORE: 0/10 LOCATION: cranial TECHNIQUE: Multiplanar, multisequence MRI of the brain was performed without contrast. FINDINGS: CEREBRUM: The ventricles are normal for age. No evidence of midline shift, mass lesion, hemorrhage or acute in farction. No extraaxial fluid collections are seen. The pituitary gland and suprasellar cistern are normal in configuration. WHITE MATTER: Patchy mild or ventricular white matter signal change which appears likely chronic and benign. POSTERIOR FOSSA: The cerebellum and brainstem are intact. The 4th ventricle is midline. The cerebellopontine angle is unremarkable. The cerebellar tonsils are normal in position. DIFFUSION IMAGING: No focal areas of restricted diffusion are seen. No evidence of acute infarction. EXTRACRANIAL: The visualized portions of the orbits and paranasal sinuses are unremarkable. CONCLUSION: No acute intracranial findings Carlos Reina MD on March 20, 2017 at 22:57 Board Certified Radiologist. This report was verified electronically.
[2017-03-21] VITALS (10 sets, daily range): BP systolic 149–170; BP diastolic 71–82; PULSE 56–69; RESP 17–18; TEMP 97.8–98.3; O2SAT 94–99
[2017-03-21] MEDS: PANTOPRAZOLE SOD 40 MG DELAYED RELEASE TAB PO SCH ×2 (06:21→16:26)
[2017-03-21 07:00] LABS: AUTOMATED NEUTROPHIL # 3.7 TH/MM3 (1.8-7.7); BASOPHIL % 0.7 % (0.0-2.0); EOSINOPHIL # 0.2 TH/MM3 (0-0.4); EOSINOPHIL % 3.7 % (0.0-4.0); HEMATOCRIT 36.5 % (39.0-51.0); HEMOGLOBIN 12.2 GM/DL (13.0-17.0); LYMPH % 22.4 % (9.0-44.0); LYMPHOCYTE # 1.3 TH/MM3 (1.0-4.8); MEAN CELL VOLUME 83.7 FL (80.0-100.0); MEAN CORPUSCULAR HEMOGLOBIN 28.1 PG (27.0-34.0); MEAN CORPUSCULAR HGB CONC 33.5 % (32.0-36.0); MEAN PLATELET VOLUME 8.2 FL (7.0-11.0); MONO % 9.5 % (0.0-8.0); MONOCYTE # 0.6 TH/MM3 (0-0.9); NEUT % 63.7 % (16.0-70.0); PLATELET COUNT 155 TH/MM3 (150-450); RED BLOOD COUNT 4.37 MIL/MM3 (4.50-5.90); RED CELL DISTRIBUTION WIDTH 14.8 % (11.6-17.2); WHITE BLOOD COUNT 5.8 TH/MM3 (4.0-11.0)
[2017-03-21 07:22] LABS: ALBUMIN 3.6 GM/DL (3.4-5.0); ALT (GPT) 28 U/L (12-78); AST (GOT) 20 U/L (15-37); BICARBONATE 24.4 MEQ/L (21.0-32.0); BLOOD UREA NITROGEN 18 MG/DL (7-18); CALCIUM 8.9 MG/DL (8.5-10.1); CHLORIDE 108 MEQ/L (98-107); CHOLESTEROL 152 MG/DL (120-200); CREATININE 0.99 MG/DL (0.60-1.30); GLOMERULAR FILTRATION RATE 73 ML/MIN (>89); GLUCOSE,RANDOM 92 MG/DL (74-106); SODIUM (NA) 140 MEQ/L (136-145); TRIGLYCERIDES 147 MG/DL (42-150)
[2017-03-21 07:24] LABS: ALKALINE PHOSPHATASE 60 U/L (45-117); HDL CHOLESTEROL 30.4 MG/DL (40.0-60.0); LDL CHOLESTEROL 92 MG/DL (0-99); TOTAL BILIRUBIN ADULT 0.4 MG/DL (0.2-1.0); TOTAL PROTEIN 7.2 GM/DL (6.4-8.2)
[2017-03-21] MEDS: INSULIN ASPART SUPPLEMENTAL SCALE SQ SCH ×3 (08:00→16:29)
[2017-03-21] MEDS: DOCUSATE SODIUM 50 MG/SENNA 8.6 MG TAB PO SCH (08:19)
[2017-03-21] MEDS: SODIUM CHLORIDE 0.9% FLUSH 10 ML FLUSH IV FLUSH SCH (08:22)
[2017-03-21] MEDS: SODIUM CHLOR 0.9% 1000 ML INJ 1,000 ML IV SCH (08:41)
[2017-03-21] MEDS ORDERED: CLOPIDOGREL 75 MG TAB PO SCH (09:00)
[2017-03-21] MEDS ORDERED: EZETIMIBE 10 MG TAB PO SCH (09:00)
--- NOTE | 2017-03-21 10:57 | HHI.PR ---
Subjective Remarks Nursing denies any deterioration since last night. Patient himself feels okay. Says that his strength is back denies having any numbness or tingling. Objective Vital Signs Date Time Temp Pulse Resp B/P (MAP) Pulse Ox O2 Delivery O2 Flow Rate FiO2 03/21/17 09:44 65 03/21/17 08:00 98.3 69 18 154/77 (102) 99 03/21/17 05:52 98.0 62 18 149/71 (97) 99 03/21/17 05:10 59 03/21/17 00:50 56 03/21/17 00:49 60 03/21/17 00:30 98.0 69 17 170/79 (109) 94 03/20/17 21:22 97.5 55 17 187/77 (113) 97 03/20/17 20:32 03/20/17 17:59 57 19 179/78 (111) 98 Room Air 03/20/17 17:12 58 177/78 (111) 03/20/17 17:04 97.7 58 18 204/88 (126) 100 03/20/17 17:04 204/88 (126) 03/20/17 17:04 99 Room Air I/O 03/20/17 03/20/17 03/20/17 03/21/17 03/21/17 03/21/17 07:00 15:00 23:00 07:00 15:00 23:00 Intake Total 240 ml 240 ml Balance 240 ml 240 ml Intake Oral 240 ml 240 ml # Voids 1 1 Result Diagram: 03/21/1751603/21/17516 Objective Remarks 5 out of 5 proximal upper and lower cavity strength bilaterally including fistgrip No facial droop, no slurred speech, tongue in midline, uvula midline, ambulating well w/o any assistive device Left foot mild edema on plantar aspect A/P Assessment and Plan Transient ischemic attack - symptoms resolved. MRIs are remarkable, CTA from 10 days ago was also unremarkable. EKG which I independently reviewed shows no A. fib. Echocardiogram is pending. Charcot foot - to continue his home doxycycline while inpt here. Echocardiogram findings discussed with Dr. Lantigua from cardiology - unable to see any obvious thrombus. Addendum: Patient has met maximum benefit from hospitalization and is clinically stable for discharge. He was instructed to take at least Plavix and Lipitor daily and for whatever reason if he was unable to take Plavix to substitute that with aspirin but not to take both. Khari Perry MD Mar 21, 2017 10:57
[2017-03-21] MEDS ORDERED: PLAV75TA29 PO (10:58)
[2017-03-21] MEDS ORDERED: LIPI80TA PO (10:58)
--- NOTE | 2017-03-21 10:59 | HHI.DCPOC ---
Discharge Care Plan Diagnosis: (1) TIA (transient ischemic attack) Goals to Promote Your Health * To prevent worsening of your condition and complications * To maintain your health at the optimal level Directions to Meet Your Goals Take your medications as prescribed Follow your dietary instruction Follow activity as directed Keep your appointments as scheduled Take your immunizations and boosters as scheduled If your symptoms worsen call your PCP, if no PCP go to Urgent Care Center or Emergency Room Smoking is Dangerous to Your Health. Avoid second hand smoke Call the 24-hour hour crisis hotline for domestic abuse at Khari Perry MD Mar 21, 2017 10:59
[2017-03-21] MEDS ORDERED: DOXYCYCLINE HYCLATE 100 MG CAP PO SCH (11:00)
--- NOTE | 2017-03-21 14:50 | EKG ---
Date Performed: 03/20/2017 Time Performed: 17:57:06 PTAGE: 76 years EKG: SINUS BRADYCARDIA WITH FIRST DEGREE AV BLOCK MINIMAL VOLTAGE CRITERIA FOR LVH, CONSIDER NOR MAL VARIANT Since previous tracing, no significant change noted ABNORMAL ECG PREVIOUS TRACING : 03/11/2017 04.19 DOCTOR: Sonny Benson Interpretating Date/Time 03/21/2017 14:50:01
[2017-03-21 15:53] LABS: HEMOGLOBIN A1C 7.1 % (4.3-6.0)
--- NOTE | 2017-03-21 16:43 | MB ---
cc: JANNY VERONICA M.D. DATE OF CONSULTATION: 03/21/2017 DATE OF : 1940 REASON FOR CONSULTATION TIA in a 76-year-old man. HISTORY OF PRESENT ILLNESS Mr. Escobedo is a 76-year-old man with a history of hypertension, heart disease, diabetes, hyperlipidemia, and neuropathy who comes to the ER with right upper extremity numbness and some slurred speech lasting for 15 minutes. He was here about a week ago for similar symptoms however signed himself out AMA. He is now on Plavix as per recommendations. He states also that he was abusing a lot of salt the last couple of weeks, but he feels back to baseline and is ready to go home. PAST MEDICAL HISTORY He has a past medical history as stated. PAST SURGICAL HISTORY 1. Bypass. 2. Aortic valve replacement. 3. Cardiac stent. ALLERGIES SULFA, CHOLESTYRAMINE, LISINOPRIL, METFORMIN, NIACIN, OMEPRAZOLE, SIMVASTATIN. FAMILY HISTORY Diabetes and heart disease. SOCIAL HISTORY He drinks maybe two beers every few days if at all. No tobacco. No drugs. PHYSICAL EXAMINATION VITAL SIGNS: Temperature is 97.8, pulse 60, respiratory rate 18, blood pressure 167/80 sating at 98%. NECK: Supple. No bruits. NEUROLOGIC: He is awake, alert. He is oriented. He is fluent. Pupils reactive. Visual daniels full. Face symmetrical. Tongue midline. Motor: No drift or leg lag. Cerebellar is intact. DTRs are 1 to 2+. Toes are downgoing. Gait: He has been ambulating in the room without any difficulties. He is actually sitting in a chair currently. IMAGING MRI of the brain did not show anything acute. [place] MRA without any acute findings. Echo was just completed, report is pending today. He had a CTA of the carotids back on 03/11 of this month, showed moderate arthrosclerotic calcification in the supraclinoid and both internal carotid arteries. LABORATORY DATA His labs are reviewed. Cholesterol 152, triglycerides 147, LDL 92, HDL 30.4. Tox screen back then was negative. IMPRESSION TIA-like symptoms in a patient with a history of hypertension, heart disease and hyperlipidemia. RECOMMENDATIONS 1. Recommend continuing Plavix 75 mg daily. 2. Blood pressure control. 3. No salt in diet. 4. Risk factor modification. 5. Start him on a statin. 6. Echo. If it cannot be interpreted today, he certainly can go home and have the echo followed up with the patient monitor and his consulting sales manager at the [facility]. 7. Recommend also an outpatient Holter monitor given his history of a-fib. If he truly has a-fib, he would need to be on anticoagulation. 8. Discharge planning today. MD SIMON Whitfield/BLAINE /2:51 PM /4:01 PM
--- NOTE | 2017-03-22 11:53 | ECHRPT ---
Indication: CONCLUSIONS The left ventricular systolic function is mildly reduced with an estimated ejection fraction in the range of 45%. Normal left ventricular size. Mild mitral valve regurgitation. Bioprosthetic. Aortic valve area is 1.3 cm. Aortic valve mean gradient is 13 mmHg. There is mild tricuspid valve regurgitation. The estimated pulmonary arterial pressure is __ mmHg. The pulmonary valve is not well visualized. BP: / HR: Rhythm: MEASUREMENTS (Male / Female) Normal Values Technical Quality:Fair 2D ECHO LV Diastolic Diameter PLAX 4.6 cm 4.2 - 5.9 / 3.9 - 5.3 cm LV Systolic Diameter PLAX 4.0 cm IVS Diastolic Thickness 1.8 cm 0.6 - 1.0 / 0.6 - 0.9 cm LVPW Diastolic Thickness 1.1 cm 0.6 - 1.0 / 0.6 - 0.9 cm LV Relative Wall Thickness 0.6 RV Internal Dim ED PLAX 3.3 cm LVOT Diameter 2.4 cm M-MODE Aortic Root Diameter MM 3.8 cm LA Systolic Diameter MM 4.7 cm LA Ao Ratio MM 1.2 DOPPLER AV Peak Velocity 264.0 cm/s AV Peak Gradient 27.9 mmHg AV Mean Gradient 13.0 mmHg AV Velocity Time Integral 61.5 cm LVOT Peak Velocity 66.9 cm/s LVOT Peak Gradient 1.8 mmHg LVOT Velocity Time Integral 17.4 cm AV Area Cont Eq vti 1.3 cm AV Area Cont Eq pk 1.1 cm Mitral E Point Velocity 42.4 cm/s Mitral A Point Velocity 72.6 cm/s Mitral E to A Ratio 0.6 LV E' Lateral Velocity 8.5 cm/s Mitral E to LV E' Lateral Ratio 5.0 LV E' Septal Velocity 9.6 cm/s Mitral E to LV E' Septal Ratio 4.4 TR Peak Velocity 247.0 cm/s TR Peak Gradient 24.4 mmHg Right Atrial Pressure 10.0 mmHg Pulmonary Artery Systolic Pressu 34.4 mmHg Right Ventricular Systolic Press 34.4 mmHg FINDINGS LEFT VENTRICLE The left ventricular systolic function is mildly reduced with an estimated ejection fraction in the range of 45%. Normal left ventricular size. RIGHT VENTRICLE Normal right ventricular size and systolic function. LEFT ATRIUM The left atrial size is normal. RIGHT ATRIUM The right atrial size is normal. ATRIAL SEPTUM Normal atrial septal thickness without atrial level shunting by limited color doppler interrogation. AORTA The aortic root and proximal ascending aorta are normal in size on limited imaging. MITRAL VALVE Structurally normal mitral valve. Mild mitral valve regurgitation. AORTIC VALVE Bioprosthetic. Aortic valve area is 1.3 cm. Aortic valve mean gradient is 13 mmHg. TRICUSPID VALVE Structurally normal tricuspid valve. There is mild tricuspid valve regurgitation. The estimated pulmonary arterial pressure is __ mmHg. PULMONARY VALVE The pulmonary valve is not well visualized. VESSELS The inferior vena cava is normal in size. PERICARDIUM No pericardial effusion. Fran Mattson MD Edited by: Gourmant CV Contract Manager (Electronically Signed) Final Date:21 March 2017 12:09 Amended: 22 March 2017 11:53
--- NOTE | 2017-03-24 11:28 | HM ---
Date Performed: 03/21/2017 Time Performed: 17:28:00 HOOKUP DATE: 03/21/17 05:28:00 PM Fri ANALYSIS START TIME: 03/21/2017 5:33:00 PM ANALYSIS END TIME: 03/22/2017 5:37:00 PM PATIENT AGE: 76 PATIENT HEIGHT PATIENT WEIGHT DRUG LIST PATIENT DIAGNOSIS: TIA TEST NARRATIVE: The patient's average heart rate was 68 BPM. No episodes of tachycardia wer e noted. Heart rates less than 50 BPM were noted 5% of the time. 242 pauses exceeding 2.0 secon ds were noted. The longest pause of 2.8 seconds occurred at 09:58:44 AM Sat. 29 ventricular ectop ics, which represented < 1% of the total beat count, were noted. The highest ventricular ectopic jennifer quency occurred from 06:00 AM to 07:00 AM Sat. During this time 4 VE(s) occurred. Ventricular ectop ics were observed as 27 isolated beat(s) and as 1 couplet(s). No runs were noted. 712 supraventr icular ectopics, which represented 1% of the total beat count, were noted. The highest supraventricu lar ectopic frequency occurred from 07:00 AM to 08:00 AM Sat. During this time 145 SVE(s) occurred. No episodes of ST depression (defined as -1.0 mm or more) were noted in channel 1. No episodes o f ST depression (defined as -1.0 mm or more) were noted in channel 2. No episodes of ST depression ( defined as -1.0 mm or more) were noted in channel 3. NO DIARY ENTRIES- POOR QUALITY TRACING TEST INTERPRETATION: The underlying rhythm is Sinus rhythm with first-degree AV block. Average rate is 68 bpm with range of 39 to 100 bpm.Rare PVCs are seen wi th occasional premature atrial contractions. Numerous episodes of Mobitz 1 second-degree AV block are seen. Maximum pause is 2.8 seconds. No symptoms are documented. Signed by : Reuben Diaz
== END 2017-03-21 19:00 | disposition home or self-care (01) | DRG 69 ==
LOC: NEPE 16:49 → UNDOADMIN 19:26 → NEDA 19:26 → N05A 21:00
PROVIDERS: ADMIT Hospitalist; ATTEND Hospitalist
DX: G45.9 Transient cerebral ischemic attack, unspecified (principal); E11.42 Type 2 diabetes mellitus with diabetic polyneuropathy; R00.1 Bradycardia, unspecified; E86.0 Dehydration; I10 Essential (primary) hypertension; E78.5 Hyperlipidemia, unspecified; E11.610 Type 2 diabetes mellitus with diabetic neuropathic arthropathy; L40.9 Psoriasis, unspecified; R47.1 Dysarthria and anarthria; I25.10 Atherosclerotic heart disease of native coronary artery without angina pectoris; K21.9 Gastro-esophageal reflux disease without esophagitis; I25.2 Old myocardial infarction; Z79.82 Long term (current) use of aspirin; Z95.2 Presence of prosthetic heart valve; Z95.1 Presence of aortocoronary bypass graft; Z95.5 Presence of coronary angioplasty implant and graft; Z86.73 Personal history of transient ischemic attack (TIA), and cerebral infarction without residual deficits
CPT/HCPCS: 70450; 70544; 70551; 80053; 80061; 81001; 82550; 82948; 83036; 84484; 85007; 85025; 85027; 85610; 85730; 93005; 93225; 93226; 93306; J1650; J7030